=== PATIENT | female | born 1965 | race Caucasian/White ===

== ENCOUNTER 2017-05-04 10:12 | Outpatient (CLI) | payer OTHER | END 2017-05-04 10:13 | disposition home or self-care (01) | LOC: BICMAMMO 10:12 | PROVIDERS: ATTEND Family Medicine | DX: Z12.31 Encounter for screening mammogram for malignant neoplasm of breast (principal) | CPT/HCPCS: 77067; G0202 ==

== ENCOUNTER 2018-05-14 07:47 | Outpatient (CLI) | payer OTHER | END 2018-05-14 07:48 | disposition home or self-care (01) | LOC: BICMAMMO 07:47 | PROVIDERS: ATTEND Family Medicine | DX: Z12.31 Encounter for screening mammogram for malignant neoplasm of breast (principal) | CPT/HCPCS: 77063; 77067 ==

== ENCOUNTER 2018-10-17 00:05 | Outpatient (CLI) | payer OTHER ==
[2018-10-17 14:25] LABS: Hemoglobin 14.4 g/dL (12.0-16.0); Mean Corpuscular Volume 88.3 fL (78.0-98.0); Mean Platelet Volume 7.5 fL (7.4-10.4); Platelet Count 310 thou/uL (130-400); RBC Distribution Width 12.5 % (11.5-14.5); Red Blood Cell (RBC) Count 4.79 mill/uL (4.20-5.40); White Blood Cell (WBC) Count 8.2 thou/uL (4.8-10.8)
[2018-10-17 14:34] LABS: Bilirubin Negative (Negative); Blood, Urine Negative (Negative); Glucose, Urine (Dipstick) Negative (Negative); INR-International Normal Ratio 0.9; Leukocyte Negative (Negative); Nitrite Negative (Negative); Protein, Urine (Dipstick) Negative (Neg-Trace); Prothrombin Time 12.6 SEC (12.0-14.7); Specific Gravity, Urine 1.015 (1.002-1.036); Urobilinogen 0.2 mg/dL (0.2-1.0); pH, Urine 5.5 (5.0-9.0)
[2018-10-17 14:39] LABS: Bacteria/HPF None Seen HPF (None Seen); Hyaline Casts/LPF 0-3 HYALINE CAST LPF (0-3 Hyaline); RBC/HPF 0-3 HPF (0-3); Squamous Epithelial 0-3 HPF (0-3); WBC/HPF None Seen HPF (0-3)
[2018-10-17 14:48] LABS: Clarity Clear (Clear)
[2018-10-17 14:49] LABS: Anion Gap 10 mmol/L (10-20); BUN (Urea Nitrogen) 10 mg/dL (9.8-20.1); Calc. Creatinine Clearance 0 mL/min (70-130); Calcium 9.8 mg/dL (7.8-10.44); Carbon Dioxide 30 mmol/L (22-29); Chloride 102 mmol/L (98-107); Estimated GFR-MDRD 87; Glucose 92 mg/dL (70-105); Potassium 3.3 mmol/L (3.5-5.1); Sodium 139 mmol/L (136-145)
--- NOTE | 2018-10-19 13:48 | EKG ---
Test Reason : Blood Pressure : / mmHG Vent. Rate : 070 BPM Atrial Rate : 070 BPM P-R Int : 182 ms QRS Dur : 086 ms QT Int : 426 ms P-R-T Axes : 059 058 050 degrees QTc Int : 460 ms Normal sinus rhythm Normal ECG When compared with ECG of 06-SEP-2016 16:17, No significant change was found Confirmed by DR. Juan Carlos WHITE ([id number]) on 10/19/2018 1:47:57 PM Referred By: RIA Confirmed By:DR. Juan Carlos WHITE
== END 2018-10-17 00:06 | disposition home or self-care (01) ==
LOC: LABBT 00:05
PROVIDERS: ATTEND Orthopaedic Surgery
DX: Z01.818 Encounter for other preprocedural examination (principal); M17.12 Unilateral primary osteoarthritis, left knee
CPT/HCPCS: 80048; 81001; 85027; 85610; 87081; 93005; 93010

== ENCOUNTER 2018-10-17 13:15 | Inpatient (IN) | payer OTHER ==
[2018-10-17 12:46] VITALS: BMI 36.6
[2018-10-29] MEDS ORDERED: Sodium Chloride 0.9% 100 ML ONE (05:53)
[2018-10-29] MEDS ORDERED: Tranexamic Acid 1,000 MG/10 ML VIAL ONE ×2 (05:53→09:06)
[2018-10-29] MEDS ORDERED: Vancomycin HCl 1.5 GM in Sodium Chloride 0.9% 250 ML 300 ML IVPB SCH ×2 (06:15→18:00)
[2018-10-29] MEDS ORDERED: Lidocaine 1% (PF) 30 ML VIAL ONE (06:29)
[2018-10-29] MEDS ORDERED: Midazolam HCl 2 mg/2 ml Vial ONE (06:29)
[2018-10-29] MEDS ORDERED: Fentanyl 100 MCG/2 ML VIAL ONE ×4 (06:29→09:44)
[2018-10-29] MEDS ORDERED: Bupivacaine/Epinephrine 0.25% 30 ML VIAL ONE (06:31)
[2018-10-29] MEDS ORDERED: Zolpidem Tartrate 5 MG TAB PO PRN ×2 (07:34→10:00)
[2018-10-29] MEDS ORDERED: Ropivacaine HCl/PF 250 ML in Premix Bag 1 BAG NERVE BLCK SCH (07:34)
[2018-10-29] MEDS ORDERED: traMADol HCl 50 MG TAB PO PRN ×3 (07:34→10:00)
[2018-10-29] MEDS ORDERED: HYDROcodone/Acetaminophen 10/325 mg Tablet PO PRN ×3 (07:34→10:00)
[2018-10-29] MEDS ORDERED: Ondansetron PF 4 MG/2 ML Vial IVP PRN ×2 (07:34→10:00)
[2018-10-29] MEDS ORDERED: Fentanyl 100 MCG/2 ML VIAL IV PRN (07:37)
[2018-10-29] MEDS ORDERED: Promethazine HCl 25 MG/ML VIAL IM PRN ×2 (08:58→10:00)
[2018-10-29] MEDS ORDERED: Ondansetron HCl/PF 4 MG/2 ML Vial IVP PRN (08:58)
[2018-10-29] MEDS ORDERED: PACU-Morphine 4MG/ML VIAL SLOW IVP PRN (08:58)
[2018-10-29] MEDS ORDERED: Meperidine HCl/PF 25 MG/ML VIAL SLOW IVP PRN (08:58)
[2018-10-29] MEDS ORDERED: HYDROmorphone 2 MG/ML VIAL SLOW IVP PRN (08:58)
[2018-10-29] MEDS ORDERED: Promethazine HCl 25 MG/ML VIAL SLOW IVP PRN (08:58)
[2018-10-29] MEDS ORDERED: Morphine Sulfate 2 MG/ML SYRINGE SLOW IVP PRN (08:58)
[2018-10-29] MEDS ORDERED: Tranexamic Acid 1,000 MG in Sodium Chloride 0.9% 100 ML IVPB SCH (09:00)
[2018-10-29] MEDS ORDERED: Ketorolac Tromethamine 30 MG/ML VIAL ONE (09:19)
[2018-10-29] MEDS ORDERED: diphenhydrAMINE 25 MG CAP PO PRN (10:00)
[2018-10-29] MEDS ORDERED: Fentanyl 100 MCG/2 ML VIAL SLOW IVP PRN ×2 (10:00)
[2018-10-29] MEDS ORDERED: Ketorolac Tromethamine 30 MG/ML VIAL IVP PRN (10:00)
[2018-10-29] MEDS ORDERED: Acetaminophen 325 MG TAB PO PRN (10:00)
--- NOTE | 2018-10-29 10:32 | RAD ---
RADIOGRAPH LEFT KNEE 2 VIEWS: Date: 10/29/18 HISTORY: 53-year-old female status post knee surgery for DJD. FINDINGS: Metallic prostheses cover the articular surfaces of distal femur and tibial plateau. Resurfacing cordero ges of posterior aspect of patella. Subcutaneous emphysema. IMPRESSION: Very recently status post total left knee replacement arthroplasty. POS: [facility]
--- NOTE | 2018-10-29 10:48 | PDOC.PN ---
- Subjective Encounter Start Date: 10/29/18 Encounter Start Time: 13:41 -: old records requested/rev Patient seen and examined. No new complaints. No overnight events - Objective MAR Reviewed: Yes Vital Signs & Weight: Vital Signs (12 hours) Temp Pulse Resp BP Pulse Ox 10/29/18 10:25 98.4 F 99 16 129/72 95 Weight Weight 200 lb Additional Labs: old labs reviewed from [facility] and all normal Radiology Reviewed by me: Yes (knee xray reviewed) Phys Exam - Physical Examination Constitutional: NAD HEENT: PERRLA, moist MMs, sclera anicteric Neck: no JVD, supple Respiratory: no wheezing, no rales, no rhonchi Cardiovascular: RRR, no significant murmur, no rub Gastrointestinal: soft, non-tender, no distention, positive bowel sounds Musculoskeletal: no edema, pulses present Neurological: non-focal, normal sensation, moves all 4 limbs Lymphatic: no nodes Psychiatric: normal affect, A&O x 3 Skin: no rash, normal turgor Dx/Plan (1) Status post total left knee replacement Code(s): Z96.652 - PRESENCE OF LEFT ARTIFICIAL KNEE JOINT Status: Acute (2) Hypertension Code(s): I10 - ESSENTIAL (PRIMARY) HYPERTENSION Status: Chronic (3) Hypothyroidism Code(s): E03.9 - HYPOTHYROIDISM, UNSPECIFIED Status: Chronic (4) Obesity (BMI 30-39.9) Code(s): E66.9 - OBESITY, UNSPECIFIED Status: Chronic (5) Osteoarthritis Code(s): M19.90 - UNSPECIFIED OSTEOARTHRITIS, UNSPECIFIED SITE Status: Chronic (6) Chronic low back pain Code(s): M54.5 - LOW BACK PAIN; G89.29 - OTHER CHRONIC PAIN Status: Chronic - Plan cont current plan of care, plan discussed w/ family, PT/OT * continue aspirin for DVT prophylaxis * pain controlled * nerve block as per anesthesia * discussed with family * code status -full code * home medication reconciled * PT/OT as per protocol. Review of Systems - Review of Systems ENT: negative: Ear Pain, Ear Discharge, Nose Pain, Nose Discharge, Nose Congestion, Mouth Pain, Mouth Swelling, Throat Pain, Throat Swelling, Other Respiratory: negative: Cough, Dry, Shortness of Breath, Hemoptysis, SOB with Excertion, Pleuritic Pain, Sputum, Wheezing Cardiovascular: negative: chest pain, palpitations, orthopnea, paroxysmal nocturnal dyspnea, edema, light headedness, other Gastrointestinal: negative: Nausea, Vomiting, Abdominal Pain, Diarrhea, Constipation, Melena, Hematochezia, Other Genitourinary: negative: Dysuria, Frequency, Incontinence, Hematuria, Retention , Other Musculoskeletal: negative: Neck Pain, Shoulder Pain, Arm Pain, Back Pain, Hand Pain, Leg Pain, Foot Pain, Other Skin: negative: Rash, Lesions, Hubert, Bruising, Other - Medications/Allergies Allergies/Adverse Reactions: Allergies Allergy/AdvReac Type Severity Reaction Status Date / Time No Known Allergies Allergy Verified 10/29/18 10:38 Medications: Current Medications Acetaminophen (Tylenol) 650 mg PO Q4H PRN PRN Reason: Headache/Fever or Pain Hydrocodone Bitart/Acetaminophen ([place] 10/325) 1 tab PO Q4H PRN PRN Reason: Pain (1-3) Hydrocodone Bitart/Acetaminophen ([place] 10/325) 2 tab PO Q4H PRN PRN Reason: PAIN (4-6) Aspirin (Ecotrin) 81 mg PO BID [facility] Celecoxib (Celebrex) 200 mg PO DAILY [facility] Fentanyl (Sublimaze) 50 mcg IV Q1H PRN PRN Reason: BREAKTHRU PAIN Fentanyl (Pacu-Sublimaze) 50 mcg SLOW IVP Q10MIN PRN PRN Reason: Moderate to Severe Pain (6-10) Stop: 10/29/18 11:58 Ferrous Gluconate (Fergon) 324 mg PO BID [facility] Hydromorphone HCl (Pacu-Dilaudid) 0.5 mg SLOW IVP Q10MIN PRN PRN Reason: Moderate to Severe Pain (6-10) Stop: 10/29/18 11:58 Vancomycin HCl 1.5 gm/ Sodium (Chloride) 300 mls @ 200 mls/hr IVPB ONCALL-OR [facility] Stop: 10/29/18 12:00 Ropivacaine 250 ml/ Device 250 mls @ 10 mls/hr NERVE BLCK INF [facility] Tranexamic Acid 1,000 mg/ (Sodium Chloride) 110 mls @ 200 mls/hr IVPB NOW [facility] Stop: 10/29/18 11:00 Last Admin: 10/29/18 10:13 Dose: Not Given Cefazolin Sodium/Dextrose 2 gm (/ Device) 50 mls @ 100 mls/hr IVPB 1500,2300 [facility] Stop: 10/29/18 23:29 Dextrose/Sodium Chloride (D5 1/2 Ns) 1,000 mls @ 100 mls/hr IV .Q10H [facility] Vancomycin HCl 1.5 gm/ Sodium (Chloride) 300 mls @ 200 mls/hr IVPB ONE [facility] Stop: 10/29/18 11:29 Iron/Minerals/Multivitamins (Theragran M) 1 tab PO DAILY [facility] Ketorolac Tromethamine (Toradol) 30 mg IVP 0300,0900,1500,2100 [facility] Stop: 10/31/18 03:01 Meperidine HCl (Pacu-Demerol) 12.5 mg SLOW IVP ONE PRN PRN Reason: Shivering Stop: 10/29/18 11:58 Morphine Sulfate (Pacu-Morphine) 4 mg SLOW IVP ONE PRN PRN Reason: Moderate to Severe Pain (6-10) Stop: 10/29/18 11:58 Morphine Sulfate (Pacu-Morphine Sulfate) 2 mg SLOW IVP Q10MIN PRN PRN Reason: Moderate to Severe Pain (6-10) Stop: 10/29/18 11:58 Ondansetron HCl (Zofran) 4 mg IVP Q6H PRN PRN Reason: Nausea/Vomiting Ondansetron HCl (Pacu-Zofran) 4 mg IVP ONE PRN PRN Reason: Nausea/Vomiting Stop: 10/29/18 11:58 Ondansetron HCl (Zofran) 4 mg IVP Q6H PRN PRN Reason: Nausea/Vomiting Promethazine HCl (Pacu-Phenergan) 6.25 mg SLOW IVP ONE PRN PRN Reason: Nausea/Vomiting Stop: 10/29/18 11:58 Promethazine HCl (Pacu-Phenergan) 6.25 mg IM ONE PRN PRN Reason: Nausea/Vomiting Stop: 10/29/18 11:58 Promethazine HCl (Phenergan) 12.5 mg IM Q4H PRN PRN Reason: Nausea/Vomiting Senna/Docusate Sodium (Senokot S) 2 tab PO BID [facility] Sodium Chloride (Flush - Normal Saline) 10 ml IVF PRN PRN PRN Reason: Saline Flush Tramadol HCl (Ultram) 50 mg PO Q6H PRN PRN Reason: Mild Pain (1-3) Tramadol HCl (Ultram) 100 mg PO Q6H PRN PRN Reason: Moderate Pain 4-6 Zolpidem Tartrate (Ambien) 5 mg PO HSPRN PRN PRN Reason: Insomnia
[2018-10-29] MEDS: HYDROcodone/Acetaminophen 10/325 mg Tablet PO PRN ×3 (11:06→19:42)
[2018-10-29] MEDS: Dextrose 5 %-0.45 % NaCl 1,000 ML IV SCH ×2 (11:09→18:07)
[2018-10-29] MEDS ORDERED: Ketorolac Tromethamine 30 MG/ML VIAL IVP SCH (12:00)
[2018-10-29] MEDS: CEFAZOLIN 2 GM in Premix Bag 1 BAG IVPB SCH ×2 (15:18→22:23)
[2018-10-29] MEDS: Ketorolac Tromethamine 30 MG/ML VIAL IVP SCH ×2 (15:18→20:32)
--- NOTE | 2018-10-29 15:35 | OP ---
DATE OF PROCEDURE: 10/29/2018 PREOPERATIVE DIAGNOSIS: Left knee osteoarthritis. POSTOPERATIVE DIAGNOSIS: Left knee osteoarthritis. PROCEDURE PERFORMED: Left total knee arthroplasty. PATCH FINISHER: Harman Fried PA-C. ANESTHESIA: The patient received LMA with a single-shot sciatic and an adductor canal. ESTIMATED BLOOD LOSS: 100 mL. TOURNIQUET TIME: 66 minutes at 300 mmHg. ANTIBIOTICS: Ancef 2 g, vancomycin 1.5 g. IMPLANTS: Haylie Triathlon 3 femur, 3 tibia, 9 CS poly A29 patella. COMPLICATIONS: None. HISTORY OF PRESENT ILLNESS: Ms. Sifuentes is a 53-year-old female, who presented with left knee pain since 2017. The patient's arthroscopy which failed and had arthritic changes progression over the last two years. I discussed with the patient risks and benefits of left total knee arthroplasty include pain, scar, bleeding, infection, damage to vital structures, decreased range of motion or strength, nonunion of fracture above or below the knee, further surgery, loss of life or limb. The patient understood the risks and benefits and elected to proceed. DESCRIPTION OF PROCEDURE: Time-out was performed designating the patient's left lower extremity as the operative site based on site, consents, and marking. After time-out, the patient's left lower extremity was prepped and draped in sterile fashion. The tourniquet was brought up and left up for a total of 66 minutes. Anterior medial parapatellar approach was performed, excised the fat pad with medial soft tissue release, mapped out our distal femur cut at 6 and 7 and 8. The patient had 2 degrees of varus and valgus with 4 degrees of anterior slope. We then pinned our measuring guide placed and measured to size 3, which we cut to size 3. We moved to our block with the anterior and posterior chamfer cuts. We then moved back to the tibia. We mapped out the patient's tibia and cut it 2, 3, and 5 degrees posterior slope and 2 degrees varus and valgus. We moved the bone and osteophytes. We then did a medial decompression of medial osteophytes off the femur as well as off the medial tibial plateau, which gave us a good soft tissue release. We did our PCL release. We then pinned our tray into position and had good overall coverage medial, anterior, and lateral and had a slight bit overhang posteriorly and laterally. The 9 poly came to full extension with good stability in flexion-extension with overall good tracking, no posterior drawer. I liked the overall alignment of the knee. We then liked the position and alignment. We everted the patella, cut from 22 down to 12 mm and placed a 29 a symmetric patella and tracked well. We drilled our lugs for that as well as our femur. We removed all implants, cut our keel, rasped down, and released the PCL, to help just a little bit of extension in the patient. We then cemented our tibia and poly into place in our femur. We removed all excess cements from our patella. We removed the excess cement. Closed the remainder of the patellar arthrotomy with #2 Quill, #2 Vicryl, 2-0 Stratafix, #2 Stratafix, and glue. The patient will be admitted postop for [place] protocol. Job ID: [id number]
[2018-10-29] MEDS: Pregabalin 75 MG CAP PO SCH (20:31)
[2018-10-29] MEDS: Amitriptyline HCl 25 MG TAB PO SCH (20:31)
[2018-10-29] MEDS: Aspirin 81 mg Enteric Coated Tablet PO SCH (20:31)
[2018-10-29] MEDS ORDERED: [UNRECOGNIZED DRUG - OTHER] PO SCH (21:00)
[2018-10-30] MEDS: Ketorolac Tromethamine 30 MG/ML VIAL IVP SCH ×4 (03:35→20:46)
[2018-10-30] MEDS ORDERED: Cepastat Lozenges 1 LOZ PO PRN (05:35)
[2018-10-30] MEDS ORDERED: Loratadine 10 MG TAB PO PRN (05:35)
[2018-10-30] MEDS ORDERED: Loperamide HCl 2 MG CAP PO PRN (05:35)
[2018-10-30] MEDS ORDERED: Diabetic Tussin 200 MG/10 ML UDCUP PO PRN (05:35)
[2018-10-30] MEDS ORDERED: Artificial Tear Sol 15 ML BOT EA EYE PRN (05:35)
[2018-10-30] MEDS ORDERED: Ondansetron ODT 4 MG TAB PO PRN (05:35)
[2018-10-30] MEDS ORDERED: Sodium Chloride 0.65% Nasal 44 ML BOT EA NARE PRN (05:35)
[2018-10-30] MEDS ORDERED: hydrALAZINE 20 MG/ML VIAL SLOW IVP PRN (05:35)
[2018-10-30] MEDS: Dextrose 5 %-0.45 % NaCl 1,000 ML IV SCH ×3 (06:10→20:56)
[2018-10-30] MEDS: Levothyroxine Sodium 75 MCG TAB PO SCH (06:11)
[2018-10-30 06:41] LABS: Hemoglobin 11.8 g/dL (12.0-16.0); Mean Corpuscular HGB CONC 34.5 g/dL (32.0-36.0); Mean Corpuscular Hemoglobin 30.5 pg (27.0-31.0); Mean Corpuscular Volume 88.4 fL (78.0-98.0); Mean Platelet Volume 8.5 fL (7.4-10.4); Platelet Count 266 thou/uL (130-400); RBC Distribution Width 12.3 % (11.5-14.5); Red Blood Cell (RBC) Count 3.88 mill/uL (4.20-5.40); White Blood Cell (WBC) Count 14.6 thou/uL (4.8-10.8)
[2018-10-30] MEDS: HYDROcodone/Acetaminophen 10/325 mg Tablet PO PRN ×4 (07:50→20:46)
[2018-10-30] MEDS: FLUoxetine HCl 10 MG CAP PO SCH (07:51)
[2018-10-30] MEDS: Senokot S 8.6-50 MG TAB PO SCH ×2 (07:52→20:45)
[2018-10-30] MEDS: Pregabalin 75 MG CAP PO SCH ×2 (07:52→20:46)
[2018-10-30] MEDS: Ferrous Gluconate 324 MG TAB PO SCH ×2 (07:52→20:46)
[2018-10-30] MEDS: Multivitamin W/ Minerals 1 TAB PO SCH (07:53)
[2018-10-30] MEDS: Aspirin 81 mg Enteric Coated Tablet PO SCH ×2 (07:53→20:46)
[2018-10-30] MEDS: Hydrochlorothiazide 25 MG TAB PO SCH (07:53)
--- NOTE | 2018-10-30 14:04 | PDOC.PN ---
- Subjective Encounter Start Date: 10/30/18 Encounter Start Time: 09:30 Patient seen and examined. No new complaints. No overnight events - Objective Resuscitation Status - Order Detail: 10/30/18 05:34 Resuscitation Status Routine Resuscitation Status: FULL: Full Resuscitation MAR Reviewed: Yes Vital Signs & Weight: Vital Signs (12 hours) Temp Pulse Resp BP Pulse Ox 10/30/18 12:28 98.9 F 79 16 124/75 96 10/30/18 07:24 98.4 F 73 16 117/76 96 10/30/18 04:35 98.3 F 85 20 107/65 97 Weight Admit Weight 200 lb Weight 200 lb I&O: 10/29/18 10/30/18 10/31/18 06:59 06:59 06:59 Intake Total 2670 960 Output Total 1000 1675 Balance 1670 -715 Result Diagrams: 10/30/18 04:53 Phys Exam - Physical Examination Constitutional: NAD HEENT: PERRLA, moist MMs, sclera anicteric Neck: no JVD, supple Respiratory: no wheezing, no rales, no rhonchi Cardiovascular: RRR, no significant murmur, no rub Gastrointestinal: soft, non-tender, no distention, positive bowel sounds Musculoskeletal: no edema, pulses present nerve block+, surgical site with dressing Neurological: non-focal, normal sensation, moves all 4 limbs Lymphatic: no nodes Psychiatric: normal affect, A&O x 3 Skin: no rash, normal turgor Dx/Plan (1) Status post total left knee replacement Code(s): Z96.652 - PRESENCE OF LEFT ARTIFICIAL KNEE JOINT Status: Acute (2) Hypertension Code(s): I10 - ESSENTIAL (PRIMARY) HYPERTENSION Status: Chronic (3) Hypothyroidism Code(s): E03.9 - HYPOTHYROIDISM, UNSPECIFIED Status: Chronic (4) Obesity (BMI 30-39.9) Code(s): E66.9 - OBESITY, UNSPECIFIED Status: Chronic (5) Osteoarthritis Code(s): M19.90 - UNSPECIFIED OSTEOARTHRITIS, UNSPECIFIED SITE Status: Chronic (6) Chronic low back pain Code(s): M54.5 - LOW BACK PAIN; G89.29 - OTHER CHRONIC PAIN Status: Chronic (7) Anemia, normocytic normochromic Code(s): D64.9 - ANEMIA, UNSPECIFIED Status: Acute - Plan cont current plan of care, plan discussed w/ family, PT/OT * continue aspirin for DVT prophylaxis as per protocol * pain controlled * nerve block as per anesthesia * overall doing well * medication reviewed as below * symptomatic treatment * medically stable. Review of Systems - Review of Systems ENT: negative: Ear Pain, Ear Discharge, Nose Pain, Nose Discharge, Nose Congestion, Mouth Pain, Mouth Swelling, Throat Pain, Throat Swelling, Other Respiratory: negative: Cough, Dry, Shortness of Breath, Hemoptysis, SOB with Excertion, Pleuritic Pain, Sputum, Wheezing Cardiovascular: negative: chest pain, palpitations, orthopnea, paroxysmal nocturnal dyspnea, edema, light headedness, other Gastrointestinal: negative: Nausea, Vomiting, Abdominal Pain, Diarrhea, Constipation, Melena, Hematochezia, Other Genitourinary: negative: Dysuria, Frequency, Incontinence, Hematuria, Retention , Other Musculoskeletal: negative: Neck Pain, Shoulder Pain, Arm Pain, Back Pain, Hand Pain, Leg Pain, Foot Pain, Other Skin: negative: Rash, Lesions, Hubert, Bruising, Other - Medications/Allergies Allergies/Adverse Reactions: Allergies Allergy/AdvReac Type Severity Reaction Status Date / Time No Known Allergies Allergy Verified 10/29/18 10:38 Medications: Current Medications Acetaminophen (Tylenol) 650 mg PO Q4H PRN PRN Reason: Headache/Fever or Pain Hydrocodone Bitart/Acetaminophen ([place] 10/325) 1 tab PO Q4H PRN PRN Reason: Pain (1-3) Hydrocodone Bitart/Acetaminophen ([place] 10/325) 2 tab PO Q4H PRN PRN Reason: PAIN (4-6) Last Admin: 10/30/18 12:12 Dose: 2 tab Amitriptyline HCl (Elavil) 25 mg PO HS [facility] Last Admin: 10/29/18 20:31 Dose: 25 mg Artificial Tears (Liquitears 15ml Bottle) 2 drop EA EYE PRN PRN PRN Reason: Dry Eyes Aspirin (Ecotrin) 81 mg PO BID [facility] Last Admin: 10/30/18 07:53 Dose: 81 mg Celecoxib (Celebrex) 200 mg PO DAILY [facility] Cholecalciferol (Vitamin D3) 5,000 units PO DAILY [facility] Last Admin: 10/30/18 07:53 Dose: 5,000 units Fentanyl (Sublimaze) 50 mcg IV Q1H PRN PRN Reason: BREAKTHRU PAIN Ferrous Gluconate (Fergon) 324 mg PO BID [facility] Last Admin: 10/30/18 07:52 Dose: 324 mg Fluoxetine HCl (Prozac) 30 mg PO DAILY [facility] Last Admin: 10/30/18 07:51 Dose: 30 mg Guaifenesin (Robitussin Sf) 200 mg PO Q4H PRN PRN Reason: Cough Hydralazine HCl (Apresoline) 10 mg SLOW IVP Q4H PRN PRN Reason: SBP > 180 and HR < 70 Hydrochlorothiazide (Hydrochlorothiazide) 25 mg PO QAM [facility] Last Admin: 10/30/18 07:53 Dose: 25 mg Ropivacaine 250 ml/ Device 250 mls @ 10 mls/hr NERVE BLCK INF [facility] Last Admin: 10/30/18 10:38 Dose: 250 mls Dextrose/Sodium Chloride (D5 1/2 Ns) 1,000 mls @ 100 mls/hr IV .Q10H [facility] Last Admin: 10/30/18 06:10 Dose: Not Given Iron/Minerals/Multivitamins (Theragran M) 1 tab PO DAILY [facility] Last Admin: 10/30/18 07:53 Dose: 1 tab Ketorolac Tromethamine (Toradol) 30 mg IVP 0300,0900,1500,2100 [facility] Stop: 10/31/18 03:01 Last Admin: 10/30/18 07:51 Dose: 30 mg Levothyroxine Sodium (Synthroid) 75 mcg PO 0600 [facility] Last Admin: 10/30/18 06:11 Dose: 75 mcg Loperamide HCl (Imodium) 2 mg PO PRN PRN PRN Reason: Diarrhea/Loose Stools Loratadine (Claritin) 10 mg PO DAILYPRN PRN PRN Reason: Sinus Symptoms Ondansetron HCl (Zofran) 4 mg IVP Q6H PRN PRN Reason: Nausea/Vomiting Ondansetron HCl (Zofran Odt) 4 mg PO Q6H PRN PRN Reason: Nausea/Vomiting Pregabalin (Lyrica) 75 mg PO BID [facility] Last Admin: 10/30/18 07:52 Dose: 75 mg Promethazine HCl (Phenergan) 12.5 mg IM Q4H PRN PRN Reason: Nausea/Vomiting Senna/Docusate Sodium (Senokot S) 2 tab PO BID [facility] Last Admin: 10/30/18 07:52 Dose: 2 tab Sodium Chloride (Flush - Normal Saline) 10 ml IVF PRN PRN PRN Reason: Saline Flush Sodium Chloride ([place] Nasal [place] 0.65%) 0 ml EA NARE QIDPRN PRN PRN Reason: Nasal Congestion Throat Lozenges (Cepastat Lozenges) 1 serafin PO Q2H PRN PRN Reason: Sore Throat Tramadol HCl (Ultram) 50 mg PO Q6H PRN PRN Reason: Mild Pain (1-3) Tramadol HCl (Ultram) 100 mg PO Q6H PRN PRN Reason: Moderate Pain 4-6 Zolpidem Tartrate (Ambien) 5 mg PO HSPRN PRN PRN Reason: Insomnia
[2018-10-30] MEDS ORDERED: Calcium Carbonate 500 MG ChewTAB PO PRN (17:00)
[2018-10-30] MEDS: Amitriptyline HCl 25 MG TAB PO SCH (20:46)
[2018-10-31] MEDS: Ketorolac Tromethamine 30 MG/ML VIAL IVP SCH (02:25)
[2018-10-31] MEDS: HYDROcodone/Acetaminophen 10/325 mg Tablet PO PRN ×3 (02:30→09:45)
[2018-10-31 05:25] LABS: Hemoglobin 11.7 g/dL (12.0-16.0); Mean Corpuscular HGB CONC 34.3 g/dL (32.0-36.0); Mean Corpuscular Hemoglobin 30.8 pg (27.0-31.0); Mean Platelet Volume 8.1 fL (7.4-10.4); Platelet Count 267 thou/uL (130-400); RBC Distribution Width 12.5 % (11.5-14.5); Red Blood Cell (RBC) Count 3.79 mill/uL (4.20-5.40); White Blood Cell (WBC) Count 12.7 thou/uL (4.8-10.8)
[2018-10-31] MEDS: Levothyroxine Sodium 75 MCG TAB PO SCH (06:19)
[2018-10-31] MEDS: Ferrous Gluconate 324 MG TAB PO SCH (09:47)
[2018-10-31] MEDS: Hydrochlorothiazide 25 MG TAB PO SCH (09:47)
[2018-10-31] MEDS: Pregabalin 75 MG CAP PO SCH (09:47)
[2018-10-31] MEDS: Multivitamin W/ Minerals 1 TAB PO SCH (09:47)
[2018-10-31] MEDS: Aspirin 81 mg Enteric Coated Tablet PO SCH (09:47)
[2018-10-31] MEDS: Senokot S 8.6-50 MG TAB PO SCH (09:47)
[2018-10-31] MEDS: FLUoxetine HCl 10 MG CAP PO SCH (09:48)
--- NOTE | 2018-10-31 12:00 | PDOC.PN ---
- Subjective Encounter Start Date: 10/31/18 Encounter Start Time: 09:15 Patient seen and examined. No new complaints. No overnight events - Objective Resuscitation Status - Order Detail: 10/30/18 05:34 Resuscitation Status Routine Resuscitation Status: FULL: Full Resuscitation MAR Reviewed: Yes Vital Signs & Weight: Vital Signs (12 hours) Temp Pulse Resp BP Pulse Ox 10/31/18 07:34 98.7 F 90 16 137/84 94 L 10/31/18 05:01 98.2 F 85 20 125/72 96 10/31/18 00:38 98.4 F 83 20 125/73 94 L Weight Admit Weight 200 lb Weight 200 lb I&O: 10/30/18 10/31/18 11/01/18 06:59 06:59 06:59 Intake Total 2670 3710 Output Total 1000 1675 Balance 1670 2034 Result Diagrams: 10/31/18 04:14 Phys Exam - Physical Examination Constitutional: NAD HEENT: PERRLA, moist MMs, sclera anicteric Neck: no JVD, supple Respiratory: no wheezing, no rales, no rhonchi Cardiovascular: RRR, no significant murmur, no rub Gastrointestinal: soft, non-tender, no distention, positive bowel sounds Musculoskeletal: no edema, pulses present Neurological: non-focal, normal sensation, moves all 4 limbs Lymphatic: no nodes Psychiatric: normal affect, A&O x 3 Skin: no rash, normal turgor Dx/Plan (1) Status post total left knee replacement Code(s): Z96.652 - PRESENCE OF LEFT ARTIFICIAL KNEE JOINT Status: Acute (2) Hypertension Code(s): I10 - ESSENTIAL (PRIMARY) HYPERTENSION Status: Chronic (3) Hypothyroidism Code(s): E03.9 - HYPOTHYROIDISM, UNSPECIFIED Status: Chronic (4) Obesity (BMI 30-39.9) Code(s): E66.9 - OBESITY, UNSPECIFIED Status: Chronic (5) Osteoarthritis Code(s): M19.90 - UNSPECIFIED OSTEOARTHRITIS, UNSPECIFIED SITE Status: Chronic (6) Chronic low back pain Code(s): M54.5 - LOW BACK PAIN; G89.29 - OTHER CHRONIC PAIN Status: Chronic (7) Anemia, normocytic normochromic Code(s): D64.9 - ANEMIA, UNSPECIFIED Status: Acute - Plan cont current plan of care * medication reviewed as below * symptomatic treatment * medically stable for discharge * resume home meds. Review of Systems - Review of Systems ENT: negative: Ear Pain, Ear Discharge, Nose Pain, Nose Discharge, Nose Congestion, Mouth Pain, Mouth Swelling, Throat Pain, Throat Swelling, Other Respiratory: negative: Cough, Dry, Shortness of Breath, Hemoptysis, SOB with Excertion, Pleuritic Pain, Sputum, Wheezing Cardiovascular: negative: chest pain, palpitations, orthopnea, paroxysmal nocturnal dyspnea, edema, light headedness, other Gastrointestinal: negative: Nausea, Vomiting, Abdominal Pain, Diarrhea, Constipation, Melena, Hematochezia, Other Genitourinary: negative: Dysuria, Frequency, Incontinence, Hematuria, Retention , Other Musculoskeletal: negative: Neck Pain, Shoulder Pain, Arm Pain, Back Pain, Hand Pain, Leg Pain, Foot Pain, Other - Medications/Allergies Allergies/Adverse Reactions: Allergies Allergy/AdvReac Type Severity Reaction Status Date / Time No Known Allergies Allergy Verified 10/29/18 10:38 Medications: Current Medications Acetaminophen (Tylenol) 650 mg PO Q4H PRN PRN Reason: Headache/Fever or Pain Hydrocodone Bitart/Acetaminophen ([place] 10/325) 1 tab PO Q4H PRN PRN Reason: Pain (1-3) Hydrocodone Bitart/Acetaminophen ([place] 10/325) 2 tab PO Q4H PRN PRN Reason: PAIN (4-6) Last Admin: 10/31/18 09:45 Dose: 2 tab Amitriptyline HCl (Elavil) 25 mg PO HS [facility] Last Admin: 10/30/18 20:46 Dose: 25 mg Artificial Tears (Liquitears 15ml Bottle) 2 drop EA EYE PRN PRN PRN Reason: Dry Eyes Aspirin (Ecotrin) 81 mg PO BID [facility] Last Admin: 10/31/18 09:47 Dose: 81 mg Calcium Carbonate (Tums) 500 mg PO QID PRN PRN Reason: INDIGESTION Last Admin: 10/30/18 17:02 Dose: 500 mg Celecoxib (Celebrex) 200 mg PO DAILY [facility] Cholecalciferol (Vitamin D3) 5,000 units PO DAILY [facility] Last Admin: 10/31/18 09:46 Dose: 5,000 units Fentanyl (Sublimaze) 50 mcg IV Q1H PRN PRN Reason: BREAKTHRU PAIN Ferrous Gluconate (Fergon) 324 mg PO BID [facility] Last Admin: 10/31/18 09:47 Dose: 324 mg Fluoxetine HCl (Prozac) 30 mg PO DAILY [facility] Last Admin: 10/31/18 09:48 Dose: 30 mg Guaifenesin (Robitussin Sf) 200 mg PO Q4H PRN PRN Reason: Cough Hydralazine HCl (Apresoline) 10 mg SLOW IVP Q4H PRN PRN Reason: SBP > 180 and HR < 70 Hydrochlorothiazide (Hydrochlorothiazide) 25 mg PO QAM [facility] Last Admin: 10/31/18 09:47 Dose: 25 mg Ropivacaine 250 ml/ Device 250 mls @ 10 mls/hr NERVE BLCK INF [facility] Last Admin: 10/30/18 10:38 Dose: 250 mls Dextrose/Sodium Chloride (D5 1/2 Ns) 1,000 mls @ 100 mls/hr IV .Q10H [facility] Last Admin: 10/30/18 20:56 Dose: Not Given Iron/Minerals/Multivitamins (Theragran M) 1 tab PO DAILY [facility] Last Admin: 10/31/18 09:47 Dose: 1 tab Levothyroxine Sodium (Synthroid) 75 mcg PO 0600 [facility] Last Admin: 10/31/18 06:19 Dose: 75 mcg Loperamide HCl (Imodium) 2 mg PO PRN PRN PRN Reason: Diarrhea/Loose Stools Loratadine (Claritin) 10 mg PO DAILYPRN PRN PRN Reason: Sinus Symptoms Ondansetron HCl (Zofran) 4 mg IVP Q6H PRN PRN Reason: Nausea/Vomiting Ondansetron HCl (Zofran Odt) 4 mg PO Q6H PRN PRN Reason: Nausea/Vomiting Pregabalin (Lyrica) 75 mg PO BID [facility] Last Admin: 10/31/18 09:47 Dose: 75 mg Promethazine HCl (Phenergan) 12.5 mg IM Q4H PRN PRN Reason: Nausea/Vomiting Senna/Docusate Sodium (Senokot S) 2 tab PO BID [facility] Last Admin: 10/31/18 09:47 Dose: 2 tab Sodium Chloride (Flush - Normal Saline) 10 ml IVF PRN PRN PRN Reason: Saline Flush Last Admin: 10/31/18 09:48 Dose: 10 ml Sodium Chloride ([place] Nasal [place] 0.65%) 0 ml EA NARE QIDPRN PRN PRN Reason: Nasal Congestion Throat Lozenges (Cepastat Lozenges) 1 serafin PO Q2H PRN PRN Reason: Sore Throat Tramadol HCl (Ultram) 50 mg PO Q6H PRN PRN Reason: Mild Pain (1-3) Tramadol HCl (Ultram) 100 mg PO Q6H PRN PRN Reason: Moderate Pain 4-6 Zolpidem Tartrate (Ambien) 5 mg PO HSPRN PRN PRN Reason: Insomnia Last Admin: 10/30/18 20:50 Dose: 5 mg
[2018-10-31 12:17] VITALS: BP 151/76; TEMP 98.1
--- NOTE | 2018-10-31 12:37 | DIS ---
DATE OF ADMISSION: 10/29/2018 DATE OF DISCHARGE: 10/31/2018 DISCHARGE DISPOSITION: Home. PRIMARY DISCHARGE DIAGNOSIS: Status post left total knee replacement. SECONDARY DISCHARGE DIAGNOSES: Osteoarthritis, obesity with BMI 36, hypothyroidism, hypertension, chronic low back pain, and normocytic normochromic anemia. PRIMARY PROCEDURE/OPERATION: Left total knee replacement by Dr. Bourne. RADIOLOGICAL INVESTIGATION: Knee x-ray. SIGNIFICANT LABORATORY DATA: Hemoglobin 11.7. DISCHARGE MEDICATIONS: 1. Tylenol 1 g q.8 hourly p.r.n. 2. Amitriptyline 25 mg p.o. at bedtime. 3. Celebrex 100 mg p.o. daily. 4. Vitamin D3, 5000 units p.o. daily. 5. Fluoxetine 30 mg p.o. daily. 6. Hydrochlorothiazide 25 mg p.o. daily. 7. Levothyroxine 75 mcg p.o. daily. 8. Lyrica 75 mg p.o. b.i.d. 9. Ambien 10 mg p.o. at bedtime. 10. Aspirin 81 mg p.o. b.i.d. CONTRAINDICATION: None. CODE STATUS: Full code. INPATIENT THREAD SINGER: Dr. Bourne was primary. Sound Team was consulted for medical comanagement. TEST RESULTS PENDING ON DISCHARGE: None. ALLERGIES: NO KNOWN DRUG ALLERGIES. DISCHARGE PLAN: Posthospital, the patient will follow up with primary care physician in 1 week. The patient has an appointment with Dr. Bourne on November 19, 2018, at 2:15 p.m. HOSPITAL COURSE: A 53-year-old female with above-mentioned medical problem, who was admitted by Dr. Bourne for left total knee replacement, which was done on October 29, 2018. The patient remained postoperatively stable. She was admitted to [facility]. At that point, Sound Team was consulted for medical comanagement. The patient's all medical problems remained stable. While in hospital, we continued all her home medication. On discharge, the patient will continue all her previous medication. Aspirin was given for DVT prophylaxis. The patient also had no block while in hospital. The patient did very well with [facility] protocol treatment. The patient was planned for discharge by Primary Team today, and we will sign off. Job ID: [id number]
[2018-10-31] MEDS: Dextrose 5 %-0.45 % NaCl 1,000 ML IV SCH (16:58)
[2018-11-01] MEDS ORDERED: CeleCOXIB 100 MG CAP PO SCH (09:00)
== END 2018-10-31 12:27 | disposition home or self-care (01) | DRG 470 ==
LOC: SJJU 10-29 05:33
PROVIDERS: ADMIT Orthopaedic Surgery; ATTEND Orthopaedic Surgery
PROC: 0SRD0J9 Replacement of Left Knee Joint with Synthetic Substitute, Cemented, Open Approach (ICD-10-PCS; principal; 2018-10-29)
DX: M17.12 Unilateral primary osteoarthritis, left knee (principal); I10 Essential (primary) hypertension; E03.9 Hypothyroidism, unspecified; E66.9 Obesity, unspecified; D64.9 Anemia, unspecified; M54.5 Low back pain; Z68.36 Body mass index [BMI] 36.0-36.9, adult
CPT/HCPCS: 36415; 85027; 86850; 86900; 86901; C1713; C1776; J0690; J1885; J2001; J2250; J2795; J3010; J3370; J3490; J7050

== ENCOUNTER 2019-05-26 15:49 | Outpatient (CLI) | payer OTHER ==
--- NOTE | 2019-05-26 16:41 | MMO ---
Bilateral MAMMO Bilat Screen [facility]. CLINICAL HISTORY: Patient is 53 years old and is seen for screening. The patient has no family history of breast cancer. The patient has no personal history of cancer. VIEWS: The views performed were: bilateral craniocaudal with tomosynthesis and bilateral mediolateral oblique with tomosynthesis. FILMS COMPARED: The present examination has been compared to prior imaging studies performed at [facility] on 03/20/2015, 04/07/2016, 05/04/2017 and 05/14/2018. This study has been interpreted with the assistance of computer-aided detection. MAMMOGRAM FINDINGS: There are scattered fibroglandular densities. Benign calcifications are noted bilaterally. Nodularity is stable. There are no suspicious masses, suspicious calcifications, or new areas of architectural distortion. IMPRESSION: THERE IS NO MAMMOGRAPHIC EVIDENCE OF MALIGNANCY. A ROUTINE FOLLOW-UP MAMMOGRAM IN 1 YEAR IS RECOMMENDED. THE RESULTS OF THIS EXAM WERE SENT TO THE PATIENT. ACR BI-RADS Category 2 - Benign finding MAMMOGRAPHY NOTE: 1. A negative mammogram report should not delay a biopsy if a dominant of clinically suspicious mass is present. 2. Approximately 10% to 15% of breast cancers are not detected by mammography. 3. Adenosis and dense breasts may obscure an underlying neoplasm. Reported by: VIVIAN CHAVEZ MD Electonically Signed: [id number]
== END 2019-05-26 15:50 | disposition home or self-care (01) ==
LOC: BICMAMMO 15:49
PROVIDERS: ATTEND Family Medicine
DX: Z12.31 Encounter for screening mammogram for malignant neoplasm of breast (principal)
CPT/HCPCS: 77063; 77067

== ENCOUNTER 2019-11-20 13:36 | Outpatient (CLI) | payer OTHER ==
--- NOTE | 2019-11-20 19:00 | MRI ---
MRI LUMBAR SPINE WITHOUT CONTRAST: 11/20/19 INDICATIONS: Spondylolisthesis lumbar region. Low back pain. COMPARISON: Comparison made to an MRI of lumbar spine dated 06/13/16. FINDINGS: The lumbar vertebrae maintain normal height and alignment. Vertebral body signal is normally preserve d. The disc spaces are preserved with degenerative disc signal changes seen. Mild loss of disc space at L4-5. Mild degenerative spurring from the lumbar vertebrae. There is no evidence of spondylolisthe sis identified. End plate deformities are seen at T12-L1, L1-2, and L2-3 and are stable from the prior exam. Findings at each disc level are described. L1-2: No disc bulge or protrusion. Mild facet arthrosis without central canal or foraminal stenosis. L2-3: No significant disc bulge. Mild facet hypertrophy. No central canal or foraminal stenosis. L3-4: Mild disc bulge. Moderate facet hypertrophy. Posterior epidural fat is present. These changes r esult in mild central canal stenosis which appears stable from prior exam. There is mild foraminal na rrowing bilaterally at this level. Short pedicle distance results in congenitally smaller spinal linda l. L4-5: Broad based disc bulge is again seen. Prominent facet and ligamentous hypertrophy. Moderate jeaneth tral canal stenosis. Bilateral foraminal stenosis more severe on the left. Changes at this level are similar to the prior study of 2017. L5-S1: Annular fissure with diffuse disc bulge and focal disc protrusion centrally and to the left s imilar to the prior study. This compresses the thecal sac although the thecal sac is congenitally sma ller at this level. It does impinge on both traversing S1 nerve roots. There is moderate facet hypert rophy and arthrosis. Mild bilateral foraminal stenosis. IMPRESSION: 1. Moderate central canal stenosis due to broad based disc bulge at L4-5 with bilateral foramina l stenosis again noted. 2. Small protrusion centrally and slightly to the left at L5-S1 again noted as described above. POS: AGW
--- NOTE | 2019-11-20 19:06 | MRI ---
MRI RIGHT KNEE 11/20/19 PROVIDED CLINICAL HISTORY: Right knee pain. FINDINGS: The anterior cruciate ligament, posterior cruciate ligament, medial collateral ligament and lateral c ollateral ligamentous complex demonstrate an intact MR appearance, as does the extensor mechanism. There is a full thickness radial tear involving the posterior horn of the medial meniscus as it appro aches the meniscal root, with associated medial meniscal extrusion. There is grade III signal within the anterior horn of the lateral meniscus. There is articular cartilage irregularity with probable full thickness articular cartilage loss invol ving the median ridge and medial facet of the patella, suboptimally evaluated due to patient motion o n the axial sequence. There is articular cartilage loss involving the central weightbearing portions of the medial femorotibial joint, likely approaching full thickness in regions. There is a large knee joint effusion. No focal concerning regional marrow or muscular signal abnormality is evident. IMPRESSION: 1. Full thickness radial tear involving the posterior horn of the medial meniscus as it approach es the meniscal root. 2. Grade III signal involving the anterior horn of the lateral meniscus. 3. Medial femorotibial and patellar articular chondrosis. 4. Large knee joint effusion. POS: AH
== END 2019-11-20 13:37 | disposition home or self-care (01) ==
LOC: BICMRI 13:36
PROVIDERS: ATTEND Orthopaedic Surgery
DX: M43.16 Spondylolisthesis, lumbar region (principal); M25.561 Pain in right knee; M25.461 Effusion, right knee; M48.061 Spinal stenosis, lumbar region without neurogenic claudication; M51.86 Other intervertebral disc disorders, lumbar region; M51.27 Other intervertebral disc displacement, lumbosacral region; M22.41 Chondromalacia patellae, right knee; S83.241A Other tear of medial meniscus, current injury, right knee, initial encounter; S83.281A Other tear of lateral meniscus, current injury, right knee, initial encounter
CPT/HCPCS: 72148

== ENCOUNTER 2020-01-15 07:17 | Day surgery (SDC) | payer OTHER ==
[2020-01-15] MEDS ORDERED: Thrombin 5000 UNITS/5 ML VIAL ONE (07:45)
[2020-01-15] MEDS ORDERED: Fentanyl 100 MCG/2 ML VIAL ONE ×3 (09:17→12:05)
[2020-01-15] MEDS ORDERED: PROPOFOL 200 MG/20 ML VIAL ONE (09:41)
[2020-01-15] MEDS ORDERED: EPHEDRINE 25 MG/5 ML SYRINGE ONE ×5 (09:41→10:41)
[2020-01-15] MEDS ORDERED: Lidocaine 1% PF 5 ML VIAL ONE (09:41)
[2020-01-15] MEDS ORDERED: Ondansetron PF 4 MG/2 ML Vial ONE (09:41)
[2020-01-15] MEDS ORDERED: Dexamethasone 20 MG/5 ML VIAL ONE (09:41)
[2020-01-15] MEDS ORDERED: Rocuronium Bromide 10 MG/ML (10ML VIAL) ONE (09:41)
[2020-01-15] MEDS ORDERED: PHENYLEPHRINE-NS 100 MCG/ML 10 ML SYRINGE ONE ×2 (09:41→10:44)
[2020-01-15] MEDS ORDERED: Midazolam HCl 2 mg/2 ml Vial ONE (10:20)
[2020-01-15] MEDS ORDERED: SUGAMMADEX SODIUM 200 MG/2 ML VIAL ONE (10:28)
[2020-01-15] MEDS ORDERED: Albumin 5% 500 ML ONE (10:34)
[2020-01-15] MEDS ORDERED: Phenylephrine 10 MG/ML VIAL ONE (10:41)
[2020-01-15] MEDS ORDERED: Promethazine HCl 25 MG/ML VIAL SLOW IVP PRN (11:27)
[2020-01-15] MEDS ORDERED: Promethazine HCl 25 MG/ML VIAL IM PRN (11:27)
[2020-01-15] MEDS ORDERED: Meperidine HCl/PF 25 MG/ML VIAL SLOW IVP PRN (11:27)
[2020-01-15] MEDS ORDERED: HYDROmorphone 2 MG/ML VIAL SLOW IVP PRN (11:27)
[2020-01-15] MEDS ORDERED: Ondansetron HCl/PF 4 MG/2 ML Vial IVP PRN (11:27)
[2020-01-15] MEDS ORDERED: Acetaminophen 325 MG TAB PO PRN (11:37)
[2020-01-15] MEDS ORDERED: tiZANidine HCl 4 MG TAB PO PRN (11:37)
[2020-01-15] MEDS ORDERED: Bisacodyl 10 MG SUPP PR PRN (11:37)
[2020-01-15] MEDS ORDERED: traMADol HCl 50 MG TAB PO PRN (11:37)
[2020-01-15] MEDS ORDERED: Fleet Enema 133 ML BOT PR PRN (11:37)
[2020-01-15] MEDS ORDERED: Mag-Al 1200 mg/1200 mg/30 ML UDCUP PO PRN (11:37)
[2020-01-15] MEDS ORDERED: Morphine 2 MG/ML VIAL SLOW IVP PRN (11:37)
[2020-01-15] MEDS ORDERED: Acetaminophen/Codeine 30-300mg Tablet PO PRN (11:37)
[2020-01-15] MEDS ORDERED: Milk Of Magnesia 30 ML UDCUP PO PRN (11:37)
[2020-01-15] MEDS ORDERED: Ondansetron PF 4 MG/2 ML Vial IVP PRN (11:37)
[2020-01-15] MEDS ORDERED: diphenhydrAMINE 25 MG CAP PO PRN (11:37)
[2020-01-15] MEDS ORDERED: HYDROmorphone 2 MG/ML VIAL ONE (13:09)
[2020-01-15 15:30] VITALS: BMI 38.7
[2020-01-15] MEDS: Sodium Chloride 0.9% 1,000 ML IV SCH (16:30)
[2020-01-15] MEDS: CEFAZOLIN 2 GM in Premix Bag 1 BAG IVPB SCH ×2 (16:30→23:41)
[2020-01-15] MEDS: HYDROcodone/Acetaminophen 7.5/325 mg Tablet PO PRN (19:35)
[2020-01-15] MEDS ORDERED: Zolpidem Tartrate 5 MG TAB PO SCH (21:00)
[2020-01-15] MEDS ORDERED: Amitriptyline HCl 25 MG TAB PO SCH (21:00)
[2020-01-15] MEDS: Pregabalin 75 MG CAP PO SCH (21:44)
[2020-01-16] MEDS: Sodium Chloride 0.9% 1,000 ML IV SCH (02:26)
[2020-01-16] MEDS: HYDROcodone/Acetaminophen 7.5/325 mg Tablet PO PRN ×2 (02:50→08:54)
[2020-01-16 04:01] VITALS: TEMP 97.8
[2020-01-16] MEDS ORDERED: Levothyroxine Sodium 75 MCG TAB PO SCH (06:00)
--- NOTE | 2020-01-16 08:05 | PRG ---
DATE OF SERVICE: 01/16/2020 Dr. Sifuentes is doing well postoperative day #1 following lumbar laminectomy and diskectomy. She is ready for discharge. Job ID: [id number]
[2020-01-16] MEDS: Pregabalin 75 MG CAP PO SCH (08:58)
[2020-01-16] MEDS ORDERED: Hydrochlorothiazide 25 MG TAB PO SCH (09:00)
[2020-01-16] MEDS ORDERED: Cholecalciferol 1,000 UNITS (25 MCG) TAB PO SCH (09:00)
[2020-01-16] MEDS ORDERED: FLUoxetine HCl 10 MG CAP PO SCH (09:00)
[2020-01-16 09:59] VITALS: BP 116/55
--- NOTE | 2020-01-16 16:57 | OP ---
DATE OF PROCEDURE: 01/15/2020 LOCATION: OR 11. OCULAR PATHOLOGIST: Neha Wayne PA-C PREPROCEDURE DIAGNOSES: Lumbar stenosis with low back and left L4-L5 far-lateral disk extrusion, left L5-S1 paracentral disk extrusion with bilateral stenosis. POSTPROCEDURE DIAGNOSES: Lumbar stenosis with low back and left L4-L5 far-lateral disk extrusion, left L5-S1 paracentral disk extrusion with bilateral stenosis. PROCEDURES PERFORMED: 1. L4-L5 laminectomy, partial facetectomy, foraminotomy, left L5-S1 hemilaminotomy, foraminotomy with diskectomy. 2. Left L4-L5 trans-facet diskectomy for decompression of the lateral and far-lateral components of the left L4 nerve root. 3. Use of operating microscope for microdissection. DESCRIPTION OF PROCEDURE: After informed consent was obtained from the patient, the patient was brought to the OR. Proper patient, pause, and identification were carried out. She was placed under excellent general endotracheal anesthesia and positioned prone on the OR table. All appropriate points were padded. We identified the L4-L5, L5-S1 dorsal spines and lamina. A linear kasia was made over this region. This area was sterilely cleansed, prepared, and draped. Proper patient, pause, and identification were carried out. The wound was then opened with a combination of sharp, monopolar, and blunt dissection. The L4-L5, L5-S1 left-sided segment was exposed. Localization film confirmed our area of interest. We then performed L4-L5 laminectomy, partial facetectomy, and foraminotomy with a left L4-L5 trans-facet diskectomy with the use of the operating microscope with excellent decompression of the exiting left L4 nerve root. We then assured freedom of the right L4 nerve root, which had not been compressed on MRI and was not intraoperatively and freedom of the traversing right L5 nerve root. We then turned our attention to making sure the left L5 nerve root was free with the L4-L5 laminectomy. We then turned our attention to the left L5-S1 segment. Diskectomy was performed at that segment for freeing up the traversing left S1 nerve root. Copious irrigation occurred throughout maximizing hemostasis. The microscope was then removed. The wound was then closed in anatomic layers following the sprinkling of vancomycin powder and meticulous hemostasis. The patient emerged from anesthesia. Job ID: [id number]
== END 2020-01-16 10:35 | disposition home or self-care (01) ==
LOC: SDC 07:17 → ONC 15:12 → SDC 01-16 10:35
PROVIDERS: ATTEND Surgery
PROC: 0SB20ZZ Excision of Lumbar Vertebral Disc, Open Approach (ICD-10-PCS; principal; 2020-01-15)
PROC: 01NB0ZZ Release Lumbar Nerve, Open Approach (ICD-10-PCS; principal; 2020-01-15)
PROC: 0SB40ZZ Excision of Lumbosacral Disc, Open Approach (ICD-10-PCS; principal; 2020-01-15)
DX: M48.061 Spinal stenosis, lumbar region without neurogenic claudication (principal); M51.16 Intervertebral disc disorders with radiculopathy, lumbar region; M51.27 Other intervertebral disc displacement, lumbosacral region; M48.07 Spinal stenosis, lumbosacral region; I10 Essential (primary) hypertension; E03.9 Hypothyroidism, unspecified; F32.9 Major depressive disorder, single episode, unspecified; Z79.899 Other long term (current) drug therapy; Z88.6 Allergy status to analgesic agent; Z88.8 Allergy status to other drugs, medicaments and biological substances
CPT/HCPCS: 76000; J0690; J1100; J1170; J2250; J2370; J2405; J2704; J3010; J3370; J3490; P9045

== ENCOUNTER 2020-05-31 15:35 | Outpatient (CLI) | payer OTHER ==
--- NOTE | 2020-05-31 16:27 | MMO ---
Bilateral MAMMO Bilat Screen [facility]. CLINICAL HISTORY: Patient is 54 years old and is seen for screening. The patient has no family history of breast cancer. The patient has no personal history of cancer. VIEWS: The views performed were: bilateral craniocaudal; bilateral craniocaudal with tomosynthesis; and bilateral mediolateral oblique with tomosynthesis. FILMS COMPARED: The present examination has been compared to prior imaging studies performed at [facility] on 04/07/2016, 05/04/2017, 05/14/2018 and 05/26/2019. This study has been interpreted with the assistance of computer-aided detection. MAMMOGRAM FINDINGS: There are scattered fibroglandular densities. There are stable nodules seen in both breasts. There are no suspicious masses, suspicious calcifications, or new areas of architectural distortion. IMPRESSION: THERE IS NO MAMMOGRAPHIC EVIDENCE OF MALIGNANCY. A ROUTINE FOLLOW-UP MAMMOGRAM IN 1 YEAR IS RECOMMENDED. THE RESULTS OF THIS EXAM WERE SENT TO THE PATIENT. ACR BI-RADS Category 2 - Benign finding MAMMOGRAPHY NOTE: 1. A negative mammogram report should not delay a biopsy if a dominant of clinically suspicious mass is present. 2. Approximately 10% to 15% of breast cancers are not detected by mammography. 3. Adenosis and dense breasts may obscure an underlying neoplasm. Reported by: ANGELA PARK MD Electonically Signed: [id number]
== END 2020-05-31 15:36 | disposition home or self-care (01) ==
LOC: BICMAMMO 15:35
PROVIDERS: ATTEND Family Medicine
DX: Z12.31 Encounter for screening mammogram for malignant neoplasm of breast (principal)
CPT/HCPCS: 77063; 77067

== ENCOUNTER 2020-09-17 14:39 | Outpatient (CLI) | payer OTHER ==
[~2020-09-17 14:39] MED LIST: Magnevist 469MG/ML 20 ML VIAL ONE
== END 2020-09-17 14:40 | disposition home or self-care (01) ==
LOC: BICMRI 14:39
PROVIDERS: ATTEND Specialist
DX: M54.16 Radiculopathy, lumbar region (principal); M43.16 Spondylolisthesis, lumbar region; M48.061 Spinal stenosis, lumbar region without neurogenic claudication; Z98.890 Other specified postprocedural states
CPT/HCPCS: 72158; 82565; A9579

== ENCOUNTER 2020-09-29 15:48 | Outpatient (CLI) | payer OTHER | END 2020-09-29 15:49 | disposition home or self-care (01) | LOC: BICRAD 15:48 | PROVIDERS: ATTEND Specialist | DX: M47.816 Spondylosis without myelopathy or radiculopathy, lumbar region (principal); M43.16 Spondylolisthesis, lumbar region; M51.36 Other intervertebral disc degeneration, lumbar region; Z98.890 Other specified postprocedural states | CPT/HCPCS: 72110 ==

== ENCOUNTER 2020-10-22 13:46 | Outpatient (CLI) | payer OTHER | END 2020-10-22 13:47 | disposition home or self-care (01) | LOC: BICCT 13:46 | PROVIDERS: ATTEND Surgery | DX: M47.26 Other spondylosis with radiculopathy, lumbar region (principal); M43.16 Spondylolisthesis, lumbar region; Z98.890 Other specified postprocedural states; M48.061 Spinal stenosis, lumbar region without neurogenic claudication | CPT/HCPCS: 72131 ==

== ENCOUNTER 2021-03-10 15:51 | Outpatient (CLI) | payer OTHER ==
[2021-03-10 17:07] LABS: #Basophils 0.1 10x3/uL (0.0-0.2); #Eosinphils 0.2 10x3/uL (0.0-0.5); #Monocytes 0.9 10x3/uL (0.0-1.1); #Neutrophils 6.9 10x3/uL (1.5-8.4); %Basophils 0.8 % (0.0-2.0); %Eosinophils 1.8 % (0.0-6.0); %Lymphocytes 27.7 % (18.0-47.0); %Monocytes 8.2 % (0.0-10.0); %Neutrophils 61.1 % (40.0-75.0); Hemoglobin 13.5 g/dL (12.0-15.5); Mean Corpuscular HGB CONC 35.1 g/dL (32.0-36.0); Mean Corpuscular Volume 82.8 fl (81.6-98.3); Mean Platelet Volume 10.4 fl (7.4-10.4); Platelet Count 363 10x3/uL (150-450); RBC Distribution Width 13.6 % (11.5-14.5); Red Blood Cell (RBC) Count 4.65 10x6/uL (3.90-5.03); White Blood Cell (WBC) Count 11.3 10x3/uL (3.5-10.5)
[2021-03-10 17:17] LABS: Prothrombin Time 10.6 sec (9.5-12.1)
[2021-03-10 17:24] LABS: Anion Gap 15 mmol/L (10-20); BUN (Urea Nitrogen) 16 mg/dL (9.8-20.1); Calc. Creatinine Clearance 0 mL/min (70-130); Calcium 10.1 mg/dL (7.8-10.44); Carbon Dioxide 28 mmol/L (22-29); Chloride 104 mmol/L (98-107); Glucose 88 mg/dL (70-105); Potassium 3.2 mmol/L (3.5-5.1); Sodium 144 mmol/L (136-145)
[2021-03-11 01:06] LABS: SARS-CoV-2 PCR by NAA Not Detected (NotDetected)
== END 2021-03-10 15:52 | disposition home or self-care (01) ==
LOC: LABBT 15:51
PROVIDERS: ATTEND Orthopaedic Surgery
DX: Z01.818 Encounter for other preprocedural examination (principal); M17.11 Unilateral primary osteoarthritis, right knee; Z20.822 Contact with and (suspected) exposure to COVID-19
CPT/HCPCS: 80048; 85025; 85610; 87081; 93005; 93010; U0003; U0005

== ENCOUNTER 2021-03-15 05:49 | Day surgery (SDC) | payer OTHER ==
[2021-03-14 13:04] VITALS: BMI 35.1
[2021-03-15] MEDS ORDERED: ceFAZolin 2 GM/DEX 5% 100 ML BAG ONE (06:34)
[2021-03-15] MEDS ORDERED: Tranexamic Acid 1,000 MG/10 ML VIAL ONE (06:34)
[2021-03-15] MEDS ORDERED: Sodium Chloride 0.9% 100 ML ONE (06:34)
[2021-03-15] MEDS ORDERED: Vancomycin HCl 1.25 GM in Sodium Chloride 0.9% 250 ML 250 ML IVPB SCH (06:45)
[2021-03-15] MEDS ORDERED: EPINEPHrine 1 MG/ML AMP ONE (06:50)
[2021-03-15] MEDS ORDERED: Bupivacaine 0.25% HCL 30 ML VIAL ONE (06:50)
[2021-03-15] MEDS ORDERED: Fentanyl 100 MCG/2 ML VIAL ONE ×4 (07:14→11:46)
[2021-03-15] MEDS ORDERED: Midazolam HCl 2 mg/2 ml Vial ONE (07:14)
[2021-03-15] MEDS ORDERED: Vancomycin HCl 1.5 GM in Sodium Chloride 0.9% 250 ML 300 ML IVPB SCH ×2 (07:30→18:00)
[2021-03-15] MEDS ORDERED: Fentanyl 100 MCG/2 ML VIAL IV PRN (07:52)
[2021-03-15] MEDS ORDERED: Lidocaine 1% PF 5 ML VIAL ONE (07:58)
[2021-03-15] MEDS ORDERED: Dexamethasone 20 MG/5 ML VIAL ONE (07:58)
[2021-03-15] MEDS ORDERED: Ondansetron PF 4 MG/2 ML Vial ONE (07:58)
[2021-03-15] MEDS ORDERED: PROPOFOL 200 MG/20 ML VIAL ONE (07:58)
[2021-03-15] MEDS ORDERED: Ropivacaine 2% HCl/PF (20 MG/10 ML VIAL) ONE (07:58)
[2021-03-15] MEDS ORDERED: PHENYLEPHRINE-NS 100 MCG/ML 10 ML SYRINGE ONE (07:58)
[2021-03-15] MEDS ORDERED: Bupivacaine HCl 0.5%/Epinephrine 1:200,000/PF 30 ml Vial ONE (07:58)
[2021-03-15] MEDS ORDERED: Promethazine HCl 25 MG/ML VIAL IM PRN (08:00)
[2021-03-15] MEDS ORDERED: Ondansetron PF 4 MG/2 ML Vial IVP PRN (08:00)
[2021-03-15] MEDS ORDERED: HYDROcodone/Acetaminophen 10/325 mg Tablet PO PRN (08:00)
[2021-03-15] MEDS ORDERED: Zolpidem Tartrate 5 MG TAB PO PRN (08:00)
[2021-03-15] MEDS ORDERED: traMADol HCl 50 MG TAB PO PRN ×2 (08:00)
[2021-03-15] MEDS ORDERED: Ropivacaine HCl/PF 250 ML in Premix Bag 1 BAG NERVE BLCK SCH (08:00)
[2021-03-15] MEDS ORDERED: Acetaminophen 325 MG TAB PO PRN (12:04)
[2021-03-15] MEDS ORDERED: diphenhydrAMINE 25 MG CAP PO PRN (12:04)
[2021-03-15] MEDS: Ketorolac Tromethamine 30 MG/ML VIAL IVP SCH ×2 (12:54→18:35)
[2021-03-15] MEDS: ceFAZolin Sodium/D5W 2 GM in Premix Bag 1 BAG IVPB SCH ×2 (13:44→20:48)
[2021-03-15] MEDS: Dextrose 5 %-0.45 % NaCl 1,000 ML IV SCH ×2 (13:47→20:48)
[2021-03-15] MEDS: Pregabalin 75 MG CAP PO SCH ×2 (15:25→20:45)
[2021-03-15] MEDS: Ferrous Gluconate 324 MG TAB PO SCH (20:46)
[2021-03-15] MEDS: Aspirin 81 mg Enteric Coated Tablet PO SCH (20:47)
[2021-03-15] MEDS: Senokot S 8.6-50 MG TAB PO SCH (20:47)
[2021-03-15] MEDS ORDERED: tiZANidine HCl 4 MG TAB PO SCH (21:00)
[2021-03-15] MEDS ORDERED: Amitriptyline HCl 25 MG TAB PO SCH (21:00)
[2021-03-15] MEDS ORDERED: Zolpidem Tartrate 5 MG TAB PO SCH (21:00)
[2021-03-15] MEDS: HYDROcodone/Acetaminophen 10/325 mg Tablet PO PRN (22:17)
[2021-03-16] MEDS: Ketorolac Tromethamine 30 MG/ML VIAL IVP SCH ×3 (01:08→13:08)
[2021-03-16] MEDS ORDERED: Levothyroxine Sodium 75 MCG TAB PO SCH (06:00)
[2021-03-16 06:43] LABS: Hemoglobin 11.8 g/dL (12.0-16.0); Mean Corpuscular HGB CONC 35.2 g/dL (32.0-36.0); Mean Corpuscular Hemoglobin 30.4 pg (27.0-31.0); Mean Corpuscular Volume 86.4 fL (78.0-98.0); Mean Platelet Volume 7.7 fL (7.4-10.4); Platelet Count 328 thou/uL (130-400); RBC Distribution Width 12.4 % (11.5-14.5); Red Blood Cell (RBC) Count 3.89 mill/uL (4.20-5.40); White Blood Cell (WBC) Count 17.9 thou/uL (4.8-10.8)
[2021-03-16] MEDS ORDERED: Amlodipine 10 MG TAB PO SCH (09:00)
[2021-03-16] MEDS ORDERED: Hydrochlorothiazide 25 MG TAB PO SCH (09:00)
[2021-03-16] MEDS ORDERED: Multivitamin W/ Minerals 1 TAB PO SCH (09:00)
[2021-03-16] MEDS ORDERED: Cholecalciferol 1,000 UNITS (25 MCG) TAB PO SCH (09:00)
[2021-03-16] MEDS ORDERED: FLUoxetine HCl 20 MG CAP PO SCH (09:00)
[2021-03-16] MEDS: Dextrose 5 %-0.45 % NaCl 1,000 ML IV SCH (09:10)
[2021-03-16] MEDS: Pregabalin 75 MG CAP PO SCH ×2 (09:11→15:13)
[2021-03-16] MEDS: Senokot S 8.6-50 MG TAB PO SCH (09:11)
[2021-03-16] MEDS: Aspirin 81 mg Enteric Coated Tablet PO SCH (09:11)
[2021-03-16] MEDS: Ferrous Gluconate 324 MG TAB PO SCH (09:12)
[2021-03-16] MEDS ORDERED: Ropivacaine 0.2% 550 ML 550 ML NERVE BLCK SCH (11:00)
[2021-03-16] MEDS: HYDROcodone/Acetaminophen 10/325 mg Tablet PO PRN (13:08)
[2021-03-16 15:35] VITALS: BP 135/70; TEMP 98
== END 2021-03-16 16:05 | disposition home or self-care (01) ==
LOC: SDC 05:49 → SJJU 12:04 → EDSTATUS 16:30 → SDC 03-16 16:05
PROVIDERS: ATTEND Orthopaedic Surgery
PROC: 3E0T3BZ Introduction of Anesthetic Agent into Peripheral Nerves and Plexi, Percutaneous Approach (ICD-10-PCS; principal; 2021-03-15)
PROC: 0SRC0J9 Replacement of Right Knee Joint with Synthetic Substitute, Cemented, Open Approach (ICD-10-PCS; principal; 2021-03-15)
DX: M17.11 Unilateral primary osteoarthritis, right knee (principal); E03.9 Hypothyroidism, unspecified; I10 Essential (primary) hypertension; Z79.899 Other long term (current) drug therapy; Z88.6 Allergy status to analgesic agent; Z88.8 Allergy status to other drugs, medicaments and biological substances; Z96.652 Presence of left artificial knee joint
CPT/HCPCS: 36415; 85027; A4306; C1713; C1776; J0171; J1100; J1885; J2250; J2405; J2704; J2795; J3010; J3370; J3490; J7042; J7050; S0020

== ENCOUNTER 2021-09-01 12:51 | Outpatient (CLI) | payer OTHER | END 2021-09-01 12:52 | disposition home or self-care (01) | LOC: BICMAMMO 12:51 | PROVIDERS: ATTEND Family Medicine | DX: Z12.31 Encounter for screening mammogram for malignant neoplasm of breast (principal) | CPT/HCPCS: 77063; 77067 ==

== ENCOUNTER 2022-07-11 08:24 | Outpatient (CLI) | payer BC | END 2022-07-11 08:25 | disposition home or self-care (01) | LOC: TBSIIMAG 08:24 | PROVIDERS: ATTEND Nurse Practitioner Family | DX: M54.16 Radiculopathy, lumbar region (principal); M48.061 Spinal stenosis, lumbar region without neurogenic claudication; M43.16 Spondylolisthesis, lumbar region; Z98.890 Other specified postprocedural states | CPT/HCPCS: 72148 ==

== ENCOUNTER 2023-01-12 11:01 | Outpatient (CLI) | payer BC | END 2023-01-12 11:02 | disposition home or self-care (01) | LOC: BICMAMMO 11:01 | PROVIDERS: ATTEND Family Medicine | DX: Z12.31 Encounter for screening mammogram for malignant neoplasm of breast (principal) | CPT/HCPCS: 77063; 77067 ==

== ENCOUNTER 2023-06-29 07:24 | Outpatient (CLI) | payer BC | END 2023-06-29 07:25 | disposition home or self-care (01) | LOC: BICMRI 07:24 | PROVIDERS: ATTEND Nurse Practitioner Family | DX: M47.22 Other spondylosis with radiculopathy, cervical region (principal); M47.813 Spondylosis without myelopathy or radiculopathy, cervicothoracic region | CPT/HCPCS: 72052; 72141 ==

== ENCOUNTER 2023-07-25 13:40 | Outpatient (CLI) | payer BC | END 2023-07-25 13:41 | disposition home or self-care (01) | LOC: MRI 13:40 | PROVIDERS: ATTEND Nurse Practitioner Family | DX: M47.26 Other spondylosis with radiculopathy, lumbar region (principal); M48.061 Spinal stenosis, lumbar region without neurogenic claudication; Z98.890 Other specified postprocedural states | CPT/HCPCS: 72148 ==

== ENCOUNTER 2023-10-12 11:00 | Inpatient (IN) | payer BC ==
[2023-10-12 10:52] VITALS: BMI 36.6
[2023-10-16] MEDS ORDERED: Thrombin 5000 UNITS/5 ML VIAL ONE (06:53)
[2023-10-16] MEDS ORDERED: CEFAZOLIN 2 GM VIAL ONE (07:22)
[2023-10-16] MEDS ORDERED: Sodium Chloride 0.9% 100 ML ONE (07:23)
[2023-10-16] MEDS ORDERED: Ketamine In 0.9 % NaCl 50 MG/5 ML SYRINGE ONE (07:43)
[2023-10-16] MEDS ORDERED: Magnesium 5 GM/10 ML VIAL ONE (07:43)
[2023-10-16] MEDS ORDERED: Midazolam HCl 2 mg/2 ml Vial ONE (07:47)
[2023-10-16] MEDS ORDERED: fentaNYL PF 100 MCG/2 ML SYRINGE ONE (07:48)
[2023-10-16] MEDS ORDERED: PROPOFOL 20 ML ONE (07:54)
[2023-10-16] MEDS ORDERED: Rocuronium Bromide 10 MG/ML (10ML VIAL) ONE (07:55)
[2023-10-16] MEDS ORDERED: Metoclopramide HCl 10 MG (2 mL) VIAL ONE (07:55)
[2023-10-16] MEDS ORDERED: PHENYLEPHRINE-NS 100 MCG/ML 10 ML SYRINGE ONE (08:56)
[2023-10-16] MEDS ORDERED: Ketorolac Tromethamine 30 MG (1 mL) VIAL ONE (10:14)
[2023-10-16] MEDS ORDERED: Ondansetron PF 4 MG/2 ML Vial ONE (10:14)
[2023-10-16] MEDS ORDERED: Dexamethasone 20 MG/5 ML VIAL ONE (10:14)
[2023-10-16] MEDS ORDERED: SUGAMMADEX SODIUM 200 MG/2 ML VIAL ONE (10:14)
[2023-10-16] MEDS ORDERED: HYDROmorphone 2 MG/ML VIAL SLOW IVP PRN (10:19)
[2023-10-16] MEDS ORDERED: Promethazine HCl 25 MG/ML VIAL IM PRN (10:19)
[2023-10-16] MEDS ORDERED: Ondansetron HCl/PF 4 MG/2 ML Vial IVP PRN (10:19)
[2023-10-16] MEDS ORDERED: Lidocaine 2% PF 5 ML VIAL ONE (10:38)
[2023-10-16] MEDS ORDERED: Ondansetron PF 4 MG/2 ML Vial IVP PRN (10:55)
[2023-10-16] MEDS ORDERED: Acetaminophen 325 MG TAB PO PRN (10:55)
[2023-10-16] MEDS ORDERED: diphenhydrAMINE 25 MG CAP PO PRN (10:55)
[2023-10-16] MEDS ORDERED: Milk Of Magnesia 30 ML UDCUP PO PRN (10:55)
[2023-10-16] MEDS ORDERED: Non-Formulary Item 1 EACH (Lidocaine [Lidocaine 5% Patch] 1 EACH Adh..Patch) TOP PRN (11:05)
[2023-10-16] MEDS ORDERED: Lidocaine 4% Patch TD PRN (11:54)
[2023-10-16] MEDS ORDERED: Transdermal Patch Removal TOP PRN (11:54)
[2023-10-16] MEDS: Morphine 2 MG/ML VIAL SLOW IVP PRN (15:25)
[2023-10-16] MEDS: CEFAZOLIN 2 GM in Sodium Chloride 0.9% 100 ML IVPB SCH (15:27)
[2023-10-16] MEDS: Sodium Chloride 0.9% 1,000 ML IV SCH (15:27)
[2023-10-16] MEDS: HYDROcodone/Acetaminophen 7.5/325 mg Tablet PO PRN (18:32)
[2023-10-16] MEDS: Amitriptyline HCl 25 MG TAB PO SCH (20:46)
[2023-10-16] MEDS: tiZANidine HCl 4 MG TAB PO PRN (20:47)
[2023-10-16] MEDS: Pregabalin 75 MG CAP PO SCH (20:47)
[2023-10-16] MEDS: Acetaminophen/Codeine 30-300mg Tablet PO PRN (20:48)
[2023-10-16] MEDS: Zolpidem Tartrate 5 MG TAB PO PRN (20:48)
[2023-10-17] MEDS: Levothyroxine Sodium 75 MCG TAB PO SCH (06:21)
[2023-10-17] MEDS: Cholecalciferol 1,000 UNITS (25 MCG) TAB PO SCH (08:01)
[2023-10-17] MEDS: Pantoprazole DR 40 MG TAB PO SCH (08:01)
[2023-10-17] MEDS: Pregabalin 75 MG CAP PO SCH (08:01)
[2023-10-17] MEDS: FLUoxetine HCl 20 MG CAP PO SCH (08:01)
[2023-10-17] MEDS: Amlodipine 10 MG TAB PO SCH (08:02)
[2023-10-17] MEDS ORDERED: PHENTERMINE HCL 30 MG PO SCH (09:00)
[2023-10-17 16:06] VITALS: BP 134/75; TEMP 97.9
== END 2023-10-17 17:35 | disposition home or self-care (01) | DRG 472 ==
LOC: SURG A 10-16 05:53
PROVIDERS: ADMIT Surgery; ATTEND Surgery
PROC: 0RG20A0 Fusion of 2 or more Cervical Vertebral Joints with Interbody Fusion Device, Anterior Approach, Anterior Column, Open Approach (ICD-10-PCS; principal; 2023-10-16)
PROC: 0RG40A0 Fusion of Cervicothoracic Vertebral Joint with Interbody Fusion Device, Anterior Approach, Anterior Column, Open Approach (ICD-10-PCS; 2023-10-16)
PROC: 01N10ZZ Release Cervical Nerve, Open Approach (ICD-10-PCS; 2023-10-16)
PROC: 01N80ZZ Release Thoracic Nerve, Open Approach (ICD-10-PCS; 2023-10-16)
PROC: 00NW0ZZ Release Cervical Spinal Cord, Open Approach (ICD-10-PCS; 2023-10-16)
PROC: 00NX0ZZ Release Thoracic Spinal Cord, Open Approach (ICD-10-PCS; 2023-10-16)
DX: M48.02 Spinal stenosis, cervical region (principal); M47.12 Other spondylosis with myelopathy, cervical region; M54.12 Radiculopathy, cervical region; I10 Essential (primary) hypertension; E03.9 Hypothyroidism, unspecified; E66.9 Obesity, unspecified; G89.4 Chronic pain syndrome; F32.A Depression, unspecified; F41.9 Anxiety disorder, unspecified; M79.7 Fibromyalgia; Z79.899 Other long term (current) drug therapy
CPT/HCPCS: C1713; J1100; J1885; J2001; J2250; J2272; J2405; J2704; J2765; J3475; J3490; J7050

== ENCOUNTER 2023-11-26 08:20 | Outpatient (CLI) | payer BC | END 2023-11-26 08:21 | disposition home or self-care (01) | LOC: BICRAD 08:20 | PROVIDERS: ATTEND Surgery | DX: M47.22 Other spondylosis with radiculopathy, cervical region (principal); M48.02 Spinal stenosis, cervical region; Z98.1 Arthrodesis status | CPT/HCPCS: 72040 ==

== ENCOUNTER 2025-02-19 09:22 | Outpatient (CLI) | payer BC | END 2025-02-19 09:23 | disposition home or self-care (01) | LOC: BICMAMMO 09:22 | PROVIDERS: ATTEND Family Medicine | DX: Z12.31 Encounter for screening mammogram for malignant neoplasm of breast (principal) | CPT/HCPCS: 77063; 77067 ==